=== PATIENT | male | born 1950 | race Caucasian/White ===

== ENCOUNTER 2019-12-22 07:43 | Day surgery (SDC) | payer MEDICARE ==
[~2019-12-22 07:43] MED LIST: Buffered Lidocaine 1% SYRIN 1 ml INTRADERM ONE; Lactated Ringers 1000 ml BAG 1,000 ML IV SCH; ceFAZolin 2 GM PREMIX in ORs 2 GM/50 ML BAG ONE
[2019-12-22] MEDS ORDERED: Midazolam 2 mg/2 ml VIAL 1 mg/ml 2 ml VIAL (2 mg) ONE ×3 (07:59→09:21)
[2019-12-22] MEDS ORDERED: Lidocaine 2% PF 5 ML VIAL ONE ×2 (07:59→08:01)
[2019-12-22] MEDS ORDERED: Propofol 10 MG/ML 20 ML BTL ONE ×2 (07:59→09:44)
[2019-12-22] MEDS ORDERED: Bupivacaine 0.5% 50 ML MDV VIAL ONE (08:27)
[2019-12-22] MEDS ORDERED: Dexmedetomidine 200 mcg/2 ml 2 ml VIAL (200 mcg) ONE (08:36)
[2019-12-22] MEDS ORDERED: ROPIVACAINE 5 MG/ML 30 ML BTL (0.5%) ONE (08:49)
[2019-12-22] MEDS ORDERED: Dexamethasone IV 4 MG/ML VIAL 1 ml VIAL ONE (09:20)
[2019-12-22] MEDS ORDERED: Naloxone 0.4 mg VIAL 0.4 mg/ml 1 ml VIAL IV PRN (09:47)
[2019-12-22] MEDS ORDERED: fentaNYL 100 mcg/2 ml 50 MCG/ML VIAL IV PRN (09:47)
[2019-12-22] MEDS ORDERED: Ondansetron 4 mg VIAL 2 MG/ML 2 ml VIAL IV PRN (09:47)
[2019-12-22] MEDS ORDERED: Acetaminophen IV 1 GM/100ML 100 ML ONE (09:48)
[2019-12-22 11:53] VITALS: BP 158/92
== END 2019-12-22 12:00 | disposition home or self-care (01) ==
LOC: OR 07:43
PROVIDERS: ATTEND Orthopaedic Surgery